=== PATIENT | female | born 1995 | race Caucasian/White ===

== ENCOUNTER 2020-10-29 21:29 | Emergency (ER) | payer OTHER, SELFPAY ==
[2020-10-29 22:03] VITALS: BP 132/76; PULSE 110; RESP 18; TEMP 36.8; O2SAT 100
--- NOTE | 2020-10-29 22:42 | ED.ANIMALBIT ---
HPI - Animal Bite General Chief Complaint: Animal Bite Stated Complaint: dog bite - nose/lip Time Seen by Provider: 10/29/20 22:25 Source: patient and family Mode of arrival: ambulatory Limitations: no limitations History of Present Illness HPI narrative: Patient is a 25-year-old previously healthy female who presents for evaluation of a lip laceration caused by a dog. Patient states that she startled her dog at home which caused the dog to bite at her face. Patient with a small laceration to the left nose without avulsion as well as a right upper lip laceration. It does involve the vermilion border. No through and through laceration. No puncture wounds to the neck, chest, upper or lower extremities. Patient is not up-to-date on her tetanus. She denies any numbness or weakness. The dog is domesticated and vaccinated. Related Data Home Medications Medication Instructions Recorded Confirmed drospirenone-ethinyl estradiol tablet 10/29/20 10/29/20 [Loryna (28)] sertraline mg 10/29/20 Allergies Allergy/AdvReac Type Severity Reaction Status Date / Time vancomycin Allergy Severe red face, Verified 10/29/20 22:06 itching Review of Systems Review of Systems: CONSTITUTIONAL: Denies fever CARDIOVASCULAR: Denies chest pain RESPIRATORY: Denies cough or dyspnea. GASTROINTESTINAL: Denies abdominal pain SKIN: Denies rash, reports laceration to nose and right upper lip MUSCULOSKELETAL: Denies back pain NEUROLOGIC: Denies headache [facility] Social History Social History (Updated 10/29/20 @ 22:43 by Carol Haq MD) Smoking status: Never smoker Alcohol intake: never Substance use: never Living arrangements: with family Occupation/Education: occupation Additional occupation/education comments: teacher Gender identity (if verbalized by the patient): Female Exam Narrative: GENERAL: Awake, alert, conversant HEAD: Normocephalic EYES: PERRLA and EOMI. ENT: Nares clear, no rhinorrhea or epistaxis. Mucous membranes moist. 1 cm right superior lip laceration which does involve the vermilion border. No macerated tissue. There is gaping. No foreign bodies. No through and through lip laceration. There is a puncture wound to the right maxilla. There is a superficial linear laceration to the left naris and the tip of the nose. No gaping or tissue avulsion. NECK: Supple. CHEST: No respiratory distress, breathing even and non labored HEART: Regular rate, sinus rhythm ABDOMEN:Non distended, non tender EXTREMITIES: Normal range of motion. No edema. SKIN: Warm, dry, no rash. NEURO:No focal deficits. Alert and oriented x3 Course Vital Signs Vital signs: Vital Signs Temperature 36.8 C 10/29/20 22:03 Pulse Rate 110 H 10/29/20 22:03 Respiratory Rate 18 10/29/20 22:03 Blood Pressure 132/76 10/29/20 22:03 Pulse Oximetry 100 10/29/20 22:03 Temperature 36.8 C 10/29/20 22:03 Pulse Rate 110 H 10/29/20 22:03 Respiratory Rate 18 10/29/20 22:03 Blood Pressure 132/76 10/29/20 22:03 Pulse Oximetry 100 10/29/20 22:03 Procedures Laceration Laceration 1: Date: 10/29/20 Time: 22:46 Site: lip Size (cm): 1 Description: linear and involves griffin border Depth: involves muscle layer Local Anesthetic: lidocaine 1% Amount of anesthesia used (mL): 4 Pre-repair: wound explored, irrigated and irrigated extensively ====== Skin Level ====== Skin layer closed with: other (FAST absorbing) Size (cm): 6-0 Number of sutures: 3 Technique: simple, interrupted and running ====== Subcutaneous Layer ====== ====== Muscle Layer ====== ====== Tendon Layer ====== Nerve Block Nerve Block 1: Nerve block date: 10/29/20 Nerve block time: 11:00 Time out performed: Yes Local Anesthetic: lidocaine 1% Amount of anesthesia used (mL): 4 Side: right In
[2020-10-29] MEDS: TETANUS,DIPHTHERIA,AC PERTUSSIS ADULT (0.5 ML) BOOSTRIX IM (22:57)
== END 2020-10-29 23:39 | disposition home or self-care (01) ==
PROVIDERS: Emergency Provider Emergency Medicine; PCP Nurse Practitioner Family
DX: S01.511A Laceration without foreign body of lip, initial encounter (principal); Z23 Encounter for immunization; W54.0XXA Bitten by dog, initial encounter
CPT/HCPCS: 12011; 90471; 90715; 99283